=== PATIENT | female | born 1955 | race Caucasian/White ===

== ENCOUNTER → 2019-08-09 | Outpatient (CLI) | payer OTHER ==
[~2019-08-09] VITALS: Ht 154.9 cm; Wt 75.8 kg
[~2019-08-09] MED LIST: AUGMENTIN200 MG/51 PO; CALCIUM500 MG PO; CHANTIX1 MG PO; LIPITOR 20 MG T20 M1 PO; MULTIVITAMINS1 EAC7 PO; VITAMIN D-40010 MCG PO; ZESTRIL20 MG PO; ZOLOFT100 MG PO
--- NOTE | ~2019-08-09 | HPC ---
[facility] [address] [address] PAIN MANAGEMENT CONSULTATION Name: YUSRA CONDE Room #: REG JOSEE El.#: [id number] Admission: 08/09/19 Attend Phys: Ulysses Garcia MD Discharge: Date of : 55 Report #: [id number] THIS REPORT FOR: cc: Tucker Keita MD, Stanley P. MD Morgan, Richard L. MD ~ CC: Ulysses Keita DATE OF SERVICE: 08/09/2019 CHIEF COMPLAINT: Right great toe pain and arm pain status post extensive cervical fusion. The patient is a delightful 63-year-old that I am seeing today at the request of Dr. Tucker Keita. She has had prior cervical fusion and was recently given a cervical epidural at the [facility] performed under CT scan! The block was helpful and she is not here today for a block, but to establish with pain management. She also complains of pain in her right great toe and wondered about my opinions regarding those symptoms. She began experiencing neck pain in . At that time, she was moving around with her whose job took him to various parts of the country. She was in [place] and a surgeon there performed an anterior cervical diskectomy and fusion that appears to have extended over C4 through C7. She had nearly immediate pain relief following that surgery and has done well up until about 2019. When symptoms began to return at [facility], she underwent the CT-guided cervical epidural injection with good results. She saw Dr. Keita regarding the burning in her great toe. He started her on some gabapentin. She has taken it intermittently. She does not like to take medicines. She has had no imaging. There was some consideration given to gout, but she has had no gout like symptoms throughout her life. Pain is intermittent and tends to be worse at night in the great toe. Her arm symptoms are intermittent. She scores them at a level of 2-3. Mild enough that she can live with them. Most of them are on the left. They are in the anterior axilla, elbow and down into the thumb region roughly following the C6 through T1 distribution. MEDICATIONS: Atorvastatin, lisinopril, sertraline, Chantix, calcium, multivitamins. ALLERGIES: None. [facility] [address] [place] [address] PAIN MANAGEMENT CONSULTATION Name: YUSRA CONDE Room #: REG [facility]..#: [id number] Admission: 08/09/19 Attend Phys: Ulysses Garcia MD Discharge: Date of : 55 Report #: [id number] PAST MEDICAL HISTORY: Positive for hypertension. PAST SURGICAL HISTORY: in 1979, ovarian wedge resection in 1978, hysterectomy in 1984. Her cervical fusion was in 2003. SOCIAL HISTORY: She is retired, grew up in [place], spent her next 33 years in [place], traveled around the country for roughly 20 years and is now back hopefully never to move again. Her is an executive. She has tried to quit smoking many times and just recently quit for the final time, she tells me. She is on Chantix. She enjoys alcohol 3-4 alcoholic beverages per week in a social setting. REVIEW OF SYSTEMS: Positive for mild constipation and easy bruising. PHYSICAL EXAMINATION: GENERAL: She is delightful female. She is wearing a mask because of restrict COVID restrictions. She is 5 feet 1 inch, 167 pounds, BMI is 31.6. VITAL SIGNS: Blood pressure 135/75, heart rate 71, respirations 16, O2 sat 97, pain intensity 2-4/10. MUSCULOSKELETAL: She moves independently from sitting to standing position, her gait is nonantalgic. She has no spastic features. CHEST: Clear to auscultation. CARDIAC: Rhythm is regular. NECK: Musculoskeletal exam of the neck reveals range of motion restrictions in the neck, mostly in neck extension, but about 50% in all planes. She has an anterior scar from her extensive fusion. She has minimal tenderness of the neck. EXTREMITIES: Examination of the upper extremities reveals good strength in biceps, triceps and fixing carpenter with some slight reduction in program admin strength on the left. Sensation shows some mild numbness in the C6 distribution on the left. Deep tendon reflexes are brisk 3+ in biceps, triceps and also brachioradialis. She has 3+ reflexes in the lower extremities at knee and ankle bilaterally. She has some crossover reflex motion when testing her patellar reflex. Kelvin's test is negative. IMPRESSION: 1. Chronic cervicalgia with radiculopathy, which is mild and responded very favorably to an epidural injection over 9 months ago. I do not think she needs another injection now and neither does she. I would be happy to provide that for her in the future. I see no real advantage in performing the x-ray and her CT scan. In fact, moving somewhat in and out of the scanner with the needle in the neck to me seems almost reckless, I would not recommend it. If she wanted to have an epidural, I have told her that we have performed many epidurals for patients with anterior cervical fusions using fluoroscopic guidance. The [address] [address] PAIN MANAGEMENT CONSULTATION Name: YUSRA CONDE Room #: JOSE ELIAS Santa#: [id number] Admission: 08/09/19 Attend Phys: Ulysses Garcia MD Discharge: Date of : 55 Report #: [id number] elements are free of scar tissue and obstruction and as long as usual cautions were performed, I think risks depend upon the conditions within the cervical epidural space. I did review her films from the [facility] and it is noted there is some flattening of the cord throughout the level of her fusion. I think that we could enter the epidural space safely at the lower edge of her fusion or just below. 2. Right great toe pain. I do not think this is gout. I also do not think it is a symptom related to her cervical surgery. It may be mechanical and I would think that the primary differential diagnosis consideration would be osteoarthritis of the great toe metatarsophalangeal joint. Plain film x-rays may be helpful in this diagnosis. Nonsteroidal anti-inflammatory drugs would be helpful. Topical agents may be also helpful for the superficial joint. Thank you for the consultation. No procedures performed today. By: 1344 1459 Ulysses Garcia MD /nt
[2019-08-09 12:34] VITALS: BP 139/75
--- NOTE | 2019-08-09 12:55 | NUR ---
Pain Clinic Assessment: 1. History of Osteoarthritis: NONE History of Rheumatoid Arthritis: NONE 2. Height: 5 ft. 1 in. 154.9 cm. Weight: 167.0 lb. oz. 75.751 kg. Patient's BMI: 31.6 3. Vital Signs: BP: 139/75 Pulse: 71 Resp: 16 Temp: 02 Sat: 97 ECG Mon: 4. Pain Intensity: 2-4 5. Fall Risk: Dizziness: N Needs help standing or walking: N Fallen in the last 3 months: N Fall risk comments: 6. Patient on Blood Thinner: None 7. History of Hypertension: Y 8. Opioid Therapy greater than 6 weeks: N Opiate Contract Signed: 9. Risk Assessment Tool Provided: 1-LOW RISK 10. Functional Assessment Tool: 11. Recreational Drug Use: Never Drug Type: Tobacco Use: Former Smoker Tobacco Type: Cigarettes Amount or Packs/day: How Many Years: Alcohol Use: Yes Frequency: Monthly Quant: 3-5/WEEK
== END ==
LOC: PAIN 06:58
DX: M54.12 Radiculopathy, cervical region (principal); I10 Essential (primary) hypertension

== ENCOUNTER → 2020-06-12 | Outpatient (CLI) | payer OTHER ==
[~2020-06-12] MED LIST changes: +CALTRATE PLUS1 EACH PO; +FISH OIL 1,0001 EAC9 PO; +LIPITOR40 MG PO; -MULTIVITAMINS1 EAC7 PO; +MYVITALIFE1 EACH PO; +PERCOCET 7.5-31 EAC1 PO; +VITAMIN D325 MC3 PO
== END ==
LOC: LAB 09:50
PROVIDERS: Student in an Organized Health Care Education/Training Program; ATTEND Orthopaedic Surgery Foot and Ankle Surgery
DX: Z01.812 Encounter for preprocedural laboratory examination (principal); Z20.822 Contact with and (suspected) exposure to COVID-19

== ENCOUNTER 2020-06-13 07:14 | Day surgery (SDC) | payer OTHER ==
[~2020-06-13] VITALS: Ht 154.9 cm; Wt 71.7 kg
--- NOTE | ~2020-06-13 | O ---
[facility] [place] [address] [place] [address] OPERATIVE REPORT Name: YUSRA CONDE Room #: 150-5 [facility]#: [id number] Admission: 06/13/20 Attend Phys: Rafael Young MD Discharge: Date of : 55 Report #: [id number] THIS REPORT FOR: cc: Tucker Keita MD, Stanley P. MD Kneidel,Rafael Cruz MD ~ DATE OF SERVICE: 06/13/2020 PREOPERATIVE DIAGNOSIS: Right ankle peroneal tendon tear. POSTOPERATIVE DIAGNOSIS: Right ankle peroneal tendon tear. PROCEDURE: Right ankle peroneal tendon repair. SURGEON: Dr. Rafael Young. ELECTROMECHANICAL EQUIPMENT TESTER: Ade Toledo. ANESTHESIA: General. ESTIMATED BLOOD LOSS: Minimal. DRAINS: No drains. TOURNIQUET TIME: 30 minutes. DESCRIPTION OF PROCEDURE: The patient brought to the operating room where she was placed under general anesthesia. Once under adequate general anesthesia, her right lower extremity was prepped and draped in sterile manner. The extremity was elevated, exsanguinated, tourniquet placed 300 mmHg. A lateral incision approximately 5 cm in length was made over the peroneal tendons just distal to the fibula. Dissection was carried down to the peroneal tendon sheaths, which were then incised along with the retinaculum at the peroneal tubercle. There was a tear of the peroneus brevis tendon at the peroneal tubercle. This was then subsequently debrided with a pair of tenotomy scissors. Once debrided, a repair of the peroneus brevis tendon was then achieved utilizing 3-0 Prolene in a running stitch manner. The peroneal tubercle itself was then subsequently removed utilizing a rongeur, decompressing the area considerably. Bone wax was placed on the exposed cancellous bone. The wound was irrigated copiously and closed with 2-0 Vicryl in subcutaneous tissues and tara were used for the skin. The wounds were dressed with Xeroform, 4 x 4s, and a sterile soft compressive dressing was placed. Tourniquet was let down approximately 30 minutes. Toes were pink and warm with good capillary refill. [address] [address] OPERATIVE REPORT Name: YUSRA CONDE Room #: 150-5 [facility]..#: [id number] Admission: 06/13/20 Attend Phys: Rafael Young MD Discharge: Date of : 55 Report #: [id number] There were no complications from the procedure. The patient tolerated the procedure well and went to recovery room without incident. By: 1033 1041 Rafael Young MD /nt
[~2020-06-13 07:14] MED LIST changes: -PERCOCET 7.5-31 EAC1 PO
[2020-06-13 08:00] VITALS: BP 163/74
[2020-06-13] MEDS ORDERED: PERCOCET 7.5-31 EAC1 PO (10:24)
--- NOTE | 2020-06-13 14:53 | EKG ---
[address] [address] ELECTROCARDIOGRAM REPORT Name: YUSRA CONDE Room #: [facility]#: [id number] Admission: 06/13/20 Attend Phys: Rafael Young MD Discharge: 06/13/20 Date of : 55 Report #: [id number] [facility] Test Date: 2020-06-13 Test Time: 08:39:56 Pat Name: YUSRA CONDE Department: Room: 150 5 Gender: F Environmental Services Aide: ANNIE : 1955 Requested By: Rafael Young Order Number: [id number] MD: Paul Casiano Measurements Intervals [place] Rate: 58 P: 52 DE: 163 QRS: -12 QRSD: 101 T: 7 QT: 451 QTc: 444 Interpretive Statements Sinus rhythm Probable left ventricular hypertrophy No previous ECG available for comparison Electronically Signed On 06-13-2020 14:52:48 CDT by Paul Casiano [email or web address] <ELECTRONICALLY SIGNED> By: Paul Casiano MD 06/13/20 1452 0839 8 Paul Casiano MD /ELOISA
== END 2020-06-13 11:45 | disposition home or self-care (01) ==
LOC: OR 07:14 → TBA 07:14 → OR 09:59
PROVIDERS: ATTEND Orthopaedic Surgery Foot and Ankle Surgery
DX: S86.311A Strain of muscle(s) and tendon(s) of peroneal muscle group at lower leg level, right leg, initial encounter (principal); I10 Essential (primary) hypertension; E78.00 Pure hypercholesterolemia, unspecified; F32.9 Major depressive disorder, single episode, unspecified; Z87.891 Personal history of nicotine dependence; Z98.890 Other specified postprocedural states; Z79.899 Other long term (current) drug therapy; Z90.710 Acquired absence of both cervix and uterus; Z98.41 Cataract extraction status, right eye; Z98.42 Cataract extraction status, left eye; X58.XXXA Exposure to other specified factors, initial encounter; Y93.89 Activity, other specified; Y92.89 Other specified places as the place of occurrence of the external cause; Y99.8 Other external cause status
CPT/HCPCS: 50010; 50101; 50386; 51412; 56524; 56526; 56528; 56529; 57091; 57180; 62110; 62900; 70005

== ENCOUNTER → 2020-08-28 | Outpatient (CLI) | payer OTHER ==
[~2020-08-28] VITALS: Ht 154.9 cm; Wt 74.8 kg
[~2020-08-28] MED LIST changes: +ALEVE220 MG PO; +CRESTOR40 MG PO; +PERCOCET 7.5-31 EAC1 PO
[2020-08-28 10:01] VITALS: BP 132/74
--- NOTE | 2020-08-28 10:32 | NUR ---
Pain Clinic Assessment: 1. History of Osteoarthritis: NONE History of Rheumatoid Arthritis: NONE 2. Height: 5 ft. 1 in. 154.9 cm. Weight: 164.8 lb. oz. 74.753 kg. Patient's BMI: 31.2 3. Vital Signs: BP: 132/74 Pulse: 60 Resp: 14 Temp: 02 Sat: 96 ECG Mon: 4. Pain Intensity: 4 TO 10 5. Fall Risk: Dizziness: N Needs help standing or walking: N Fallen in the last 3 months: N Fall risk comments: 6. Patient on Blood Thinner: None 7. History of Hypertension: Y 8. Opioid Therapy greater than 6 weeks: N Opiate Contract Signed: 9. Risk Assessment Tool Provided: 1-LOW 10. Functional Assessment Tool: 11. Recreational Drug Use: Never Drug Type: Tobacco Use: Former Smoker Tobacco Type: Amount or Packs/day: How Many Years: Alcohol Use: Yes Frequency: Daily Quant: 2 BEER
== END ==
LOC: PAIN 08:29
PROVIDERS: ATTEND Anesthesiology Pain Medicine
DX: M54.12 Radiculopathy, cervical region (principal); I10 Essential (primary) hypertension; Z87.891 Personal history of nicotine dependence; Z79.899 Other long term (current) drug therapy

== ENCOUNTER → 2020-09-01 | Outpatient (CLI) | payer OTHER ==
[~2020-09-01] VITALS: Ht 154.9 cm; Wt 74.4 kg
[2020-09-01 14:14] VITALS: BP 126/63
--- NOTE | 2020-09-01 14:22 | NUR ---
Pain Clinic Assessment: 1. History of Osteoarthritis: NONE History of Rheumatoid Arthritis: NONE 2. Height: 5 ft. 1 in. 154.9 cm. Weight: 164.0 lb. oz. 74.390 kg. Patient's BMI: 31.0 3. Vital Signs: BP: 126/63 Pulse: 70 Resp: 16 Temp: 02 Sat: 96 ECG Mon: 4. Pain Intensity: 4 TO 5 5. Fall Risk: Dizziness: N Needs help standing or walking: N Fallen in the last 3 months: N Fall risk comments: 6. Patient on Blood Thinner: None 7. History of Hypertension: Y 8. Opioid Therapy greater than 6 weeks: N Opiate Contract Signed: 9. Risk Assessment Tool Provided: 1-LOW 10. Functional Assessment Tool: 11. Recreational Drug Use: Never Drug Type: Tobacco Use: Former Smoker Tobacco Type: Amount or Packs/day: How Many Years: Alcohol Use: Yes Frequency: Daily Quant: 1
== END | disposition home or self-care (01) ==
LOC: PAIN 11:03
PROVIDERS: ATTEND Anesthesiology Pain Medicine
DX: M54.12 Radiculopathy, cervical region (principal); G89.29 Other chronic pain; Z98.890 Other specified postprocedural states; Z79.899 Other long term (current) drug therapy; Z87.891 Personal history of nicotine dependence